=== PATIENT | male | born 1945 | race Caucasian/White ===

== ENCOUNTER 2020-12-22 08:03 | Outpatient (REF) | payer MEDICARE, SELFPAY ==
[2020-12-22 11:31] LABS: Alanine Aminotransferase 17 U/L (0-40); Albumin Level 4.2 g/dL (3.5-5.0); Alkaline Phosphatase 65 U/L (39-117); Anion Gap 15 (12-20); Aspartate Amino Transferase 14 U/L (5-37); Bilirubin Total 0.3 mg/dL (0.0-1.0); Blood Urea Nitrogen 22 mg/dL (9-16); Calcium 9.1 mg/dL (8.4-10.2); Carbon Dioxide 22 mmol/L (22-29); Chloride 108 mmol/L (96-108); Cholesterol 200 mg/dL; Estimated Glomerular Filt Rate > 60; Glucose Fasting 192 mg/dL (60-99); HDL Cholesterol 32 mg/dL; LDL Cholesterol Calculated 93 mg/dl; Potassium 4.5 mmol/L (3.3-5.1); Sodium 140 mmol/L (135-145); Total Protein 6.5 g/dL (6.5-8.0); Triglycerides 377 mg/dL
[2020-12-22 11:35] LABS: Estimated Average Glucose 177 mg/dL; Hemoglobin A1c % 7.8 %
== END 2020-12-22 08:04 | disposition home or self-care (01) ==
LOC: HO.MANLDS 08:03
PROVIDERS: PCP Internal Medicine; Visit Provider Internal Medicine
DX: I10 Essential (primary) hypertension (principal)
CPT/HCPCS: 36415; 80053; 80061; 83036

== ENCOUNTER 2021-04-21 10:52 | Outpatient (REF) | payer MEDICARE, SELFPAY ==
[2021-04-21 13:28] LABS: Estimated Average Glucose 151 mg/dL; Hemoglobin A1c % 6.9 %
[2021-04-21 13:53] LABS: Cholesterol 174 mg/dL; HDL Cholesterol 32 mg/dL; LDL Cholesterol Calculated 94 mg/dl; Triglycerides 240 mg/dL
== END 2021-04-21 10:53 | disposition home or self-care (01) ==
LOC: HO.MANLDS 10:52
PROVIDERS: PCP Internal Medicine; Visit Provider Internal Medicine
DX: E11.21 Type 2 diabetes mellitus with diabetic nephropathy (principal); I10 Essential (primary) hypertension
CPT/HCPCS: 36415; 80061; 83036

== ENCOUNTER 2021-09-01 09:02 | Outpatient (REF) | payer MEDICARE, SELFPAY ==
[2021-09-01 11:40] LABS: Estimated Average Glucose 148 mg/dL; Hemoglobin A1c % 6.8 %
== END 2021-09-01 09:03 | disposition home or self-care (01) ==
LOC: HO.MANLDS 09:02
PROVIDERS: PCP Internal Medicine; Visit Provider Internal Medicine
DX: E11.21 Type 2 diabetes mellitus with diabetic nephropathy (principal); I10 Essential (primary) hypertension
CPT/HCPCS: 36415; 83036

== ENCOUNTER 2022-01-14 07:44 | Outpatient (REF) | payer MEDICARE, SELFPAY ==
[2022-01-14 11:54] LABS: Alanine Aminotransferase 102 U/L (0-40); Albumin Level 3.6 g/dL (3.5-5.0); Alkaline Phosphatase 121 U/L (39-117); Anion Gap 14 (12-20); Aspartate Amino Transferase 52 U/L (5-37); Bilirubin Total 0.5 mg/dL (0.0-1.0); Blood Urea Nitrogen 27 mg/dL (9-16); Calcium 9.2 mg/dL (8.4-10.2); Carbon Dioxide 23 mmol/L (22-29); Chloride 102 mmol/L (96-108); Estimated Glomerular Filt Rate > 60; Glucose Random 171 mg/dL (60-115); Potassium 4.8 mmol/L (3.3-5.1); Sodium 134 mmol/L (135-145); Total Protein 6.4 g/dL (6.5-8.0)
[2022-01-14 12:11] LABS: Creatinine Urine 104.57 mg/dL; Microalbum/Creatinine Ratio Ur 401.6 ug/mg cr
== END 2022-01-14 07:45 | disposition home or self-care (01) ==
LOC: HO.MANLDS 07:44
PROVIDERS: PCP Internal Medicine; Visit Provider Internal Medicine
DX: E11.21 Type 2 diabetes mellitus with diabetic nephropathy (principal)
CPT/HCPCS: 36415; 80053; 82043

== ENCOUNTER 2022-03-04 09:34 | Outpatient (REF) | payer MEDICARE, SELFPAY ==
[2022-03-04 11:07] LABS: MANUAL DIFF FLAG NO
[2022-03-04 11:15] LABS: Basophils Absolute Auto 0.1 X10*3/uL (0.0-0.2); Basophils Percent Auto 0.7 % (0-2); Eosinophils Absolute Auto 0.2 X10*3/uL (0.0-0.4); Eosinophils Percent Auto 1.4 % (0-4); Hematocrit 41.4 % (42.0-52.0); Hemoglobin 13.9 g/dl (14.0-18.0); Imm Gran Abs Auto 0.07 X10*3/uL (0.00-0.03); Imm Gran Pct Auto 0.6 % (0.0-0.4); Lymphocytes Absolute Auto 2.6 X10*3/uL (1.2-4.9); Lymphocytes Percent Auto 22.7 % (20-40); Mean Corpuscular HGB Conc 33.6 g/dl (31.0-36.0); Mean Corpuscular Hemoglobin 30.6 pg (27.0-33.0); Mean Corpuscular Volume 91.2 fL (80.0-98.0); Mean Platelet Volume 10.7 fL (9.4-12.4); Monocytes Percent Auto 8.9 % (2-11); Neutrophils Absolute Auto 7.4 x10*3/uL (2.0-8.3); Neutrophils Percent Auto 65.7 % (45-73); Platelet Count 293 X10*3/uL (160-400); Red Blood Count 4.54 X10*6/uL (4.60-5.80); Red Cell Distribution Width 14.6 % (11.0-16.0); White Blood Count 11.3 X10*3/uL (4.8-10.8)
[2022-03-04 11:19] LABS: Appearance Urine CLEAR; Color Urine YELLOW; Glucose Urine UA NEG (NEG); Leukocyte Esterase Urine NEG (NEG); Nitrite Urine NEG (NEG); PH 5.5 (5.0-8.0); Specific Gravity - Urine >= 1.030 (1.005-1.025); UACC Culture Trigger NO; Urine Blood NEG (NEG); Urine Ketones NEG (NEG); Urine Protein 2+ MG/DL (NEG-TRACE)
[2022-03-04 11:35] LABS: Alanine Aminotransferase 17 U/L (0-40); Albumin Level 4.1 g/dL (3.5-5.0); Alkaline Phosphatase 84 U/L (39-117); Amylase 54 U/L (28-100); Anion Gap 14 (12-20); Aspartate Amino Transferase 14 U/L (5-37); Bilirubin Total < 0.2 mg/dL (0.0-1.0); Blood Urea Nitrogen 17 mg/dL (9-16); C Reactive Protein 1.23 mg/dL (< or = 0.50); Calcium 9.4 mg/dL (8.4-10.2); Carbon Dioxide 22 mmol/L (22-29); Chloride 109 mmol/L (96-108); Estimated Glomerular Filt Rate > 60; Glucose Random 144 mg/dL (60-115); Iron 62 mcg/dL (45-160); Percent Iron Saturation 21 % (15-50); Potassium 4.7 mmol/L (3.3-5.1); Sodium 140 mmol/L (135-145); Total Iron Binding Capacity 295 mcg/dL (228-428); Total Protein 6.6 g/dL (6.5-8.0); Unsaturated Iron Binding 233 ug/dL
[2022-03-04 11:45] LABS: Granular Casts Urine 0-2 /LPF
[2022-03-04 11:46] LABS: Squamous Epithelial Cell Urine TRACE /LPF; UACC CULT YES
[2022-03-04 11:47] LABS: Mucus Urine TRACE /LPF; RBC Urine 0 /HPF (0)
[2022-03-04 11:48] LABS: Vitamin B12 484 pg/mL (200-900)
[2022-03-04 11:50] LABS: Erythrocyte Sedimentation Rate 38 MM/HR (0-15)
[2022-03-04 11:54] LABS: Free T4 (Free Thyroxine) 0.88 ng/dL (0.71-1.85); Thyroid Stimulating Hormone 1.27 uIU/mL (0.32-4.0); Vitamin D 25-OH Total 23.9 ng/mL (>30)
[2022-03-06 05:02] LABS: Lyme Abs Screen <0.90 index
== END 2022-03-04 09:35 | disposition home or self-care (01) ==
LOC: HO.MANLDS 09:34
PROVIDERS: Visit Provider Physician Assistant
DX: R63.0 Anorexia (principal); R61 Generalized hyperhidrosis; R53.83 Other fatigue; M89.8X9 Other specified disorders of bone, unspecified site; M79.10 Myalgia, unspecified site; L60.3 Nail dystrophy; L65.9 Nonscarring hair loss, unspecified; Z86.2 Personal history of diseases of the blood and blood-forming organs and certain disorders involving the immune mechanism
CPT/HCPCS: 36415; 80053; 81001; 82150; 82306; 82607; 83540; 84439; 84443; 85025; 85652; 86140; 86617; 86618; 87086

== ENCOUNTER 2022-06-13 08:54 | Outpatient (REF) | payer MEDICARE, SELFPAY ==
[2022-06-13 11:12] LABS: Estimated Average Glucose 128 mg/dL; Hemoglobin A1c % 6.1 %
[2022-06-13 11:29] LABS: Alanine Aminotransferase 13 U/L (0-40); Albumin Level 4.3 g/dL (3.5-5.0); Alkaline Phosphatase 61 U/L (39-117); Anion Gap 17 (12-20); Aspartate Amino Transferase 16 U/L (5-37); Bilirubin Total 0.5 mg/dL (0.0-1.0); Blood Urea Nitrogen 24 mg/dL (9-16); Calcium 9.5 mg/dL (8.4-10.2); Carbon Dioxide 22 mmol/L (22-29); Chloride 106 mmol/L (96-108); Cholesterol 156 mg/dL; Estimated Glomerular Filt Rate > 60; Glucose Random 131 mg/dL (60-115); HDL Cholesterol 36 mg/dL; LDL Cholesterol Calculated 88 mg/dl; Potassium 4.5 mmol/L (3.3-5.1); Sodium 140 mmol/L (135-145); Total Protein 6.6 g/dL (6.5-8.0); Triglycerides 162 mg/dL
== END 2022-06-13 08:55 | disposition home or self-care (01) ==
LOC: HO.MANLDS 08:54
PROVIDERS: Visit Provider Internal Medicine
DX: E11.21 Type 2 diabetes mellitus with diabetic nephropathy (principal); I10 Essential (primary) hypertension
CPT/HCPCS: 36415; 80053; 80061; 83036

== ENCOUNTER 2022-10-07 08:39 | Outpatient (REF) | payer MEDICARE, SELFPAY ==
[2022-10-07 11:46] LABS: Estimated Average Glucose 137 mg/dL; Hemoglobin A1c % 6.4 %
[2022-10-07 12:15] LABS: Alanine Aminotransferase 19 U/L (0-40); Albumin Level 4.1 g/dL (3.5-5.0); Alkaline Phosphatase 62 U/L (39-117); Anion Gap 14 (12-20); Aspartate Amino Transferase 16 U/L (5-37); Bilirubin Total 0.4 mg/dL (0.0-1.0); Blood Urea Nitrogen 24 mg/dL (9-16); Calcium 9.4 mg/dL (8.4-10.2); Carbon Dioxide 23 mmol/L (22-29); Chloride 108 mmol/L (96-108); Cholesterol 170 mg/dL; Estimated Glomerular Filt Rate > 60; Glucose Random 146 mg/dL (60-115); HDL Cholesterol 32 mg/dL; LDL Cholesterol Calculated 91 mg/dl; Potassium 4.8 mmol/L (3.3-5.1); Sodium 140 mmol/L (135-145); Total Protein 6.4 g/dL (6.5-8.0); Triglycerides 239 mg/dL
== END 2022-10-07 08:40 | disposition home or self-care (01) ==
LOC: HO.MANLDS 08:39
PROVIDERS: Visit Provider Internal Medicine
DX: E11.21 Type 2 diabetes mellitus with diabetic nephropathy (principal); I10 Essential (primary) hypertension
CPT/HCPCS: 36415; 80053; 80061; 83036

== ENCOUNTER 2023-01-27 08:49 | Outpatient (REF) | payer MEDICARE, SELFPAY ==
[2023-01-27 12:22] LABS: Alanine Aminotransferase 20 U/L (0-40); Albumin Level 3.9 g/dL (3.5-5.0); Alkaline Phosphatase 62 U/L (39-117); Anion Gap 14 (12-20); Aspartate Amino Transferase 18 U/L (5-37); Bilirubin Total 0.4 mg/dL (0.0-1.0); Blood Urea Nitrogen 24 mg/dL (9-16); Calcium 9.3 mg/dL (8.4-10.2); Carbon Dioxide 21 mmol/L (22-29); Chloride 110 mmol/L (96-108); Cholesterol 167 mg/dL; Estimated Glomerular Filt Rate > 60; Glucose Random 148 mg/dL (60-115); HDL Cholesterol 32 mg/dL; LDL Cholesterol Calculated 87 mg/dl; Potassium 4.6 mmol/L (3.3-5.1); Sodium 140 mmol/L (135-145); Total Protein 6.2 g/dL (6.5-8.0); Triglycerides 244 mg/dL
[2023-01-27 12:32] LABS: Creatinine Urine 85.22 mg/dL
[2023-01-27 12:51] LABS: Microalbum/Creatinine Ratio Ur 1114.7 ug/mg cr
[2023-01-27 13:25] LABS: Estimated Average Glucose 128 mg/dL; Hemoglobin A1C 170.6044 umol/L; Hemoglobin A1c % 6.1 %
== END 2023-01-27 08:50 | disposition home or self-care (01) ==
LOC: HO.MANLDS 08:49
PROVIDERS: Visit Provider Internal Medicine
DX: E11.21 Type 2 diabetes mellitus with diabetic nephropathy (principal)
CPT/HCPCS: 36415; 80053; 80061; 82043; 83036

== ENCOUNTER 2023-10-02 07:32 | Outpatient (REF) | payer MEDICARE, SELFPAY ==
[2023-10-02 13:03] LABS: MANUAL DIFF FLAG NO
[2023-10-02 13:11] LABS: Basophils Absolute Auto 0.1 X10*3/uL (0.0-0.2); Basophils Percent Auto 0.9 % (0-2); Eosinophils Absolute Auto 0.2 X10*3/uL (0.0-0.4); Eosinophils Percent Auto 1.8 % (0-4); Hematocrit 44.5 % (42.0-52.0); Hemoglobin 14.9 g/dl (14.0-18.0); Imm Gran Abs Auto 0.07 X10*3/uL (0.00-0.03); Imm Gran Pct Auto 0.6 % (0.0-0.4); Lymphocytes Absolute Auto 3.2 X10*3/uL (1.2-4.9); Lymphocytes Percent Auto 27.9 % (20-40); Mean Corpuscular HGB Conc 33.5 g/dl (31.0-36.0); Mean Corpuscular Hemoglobin 30.8 pg (27.0-33.0); Mean Corpuscular Volume 91.9 fL (80.0-98.0); Mean Platelet Volume 10.6 fL (9.4-12.4); Monocytes Absolute Auto 1.4 X10*3/uL (0.1-1.2); Monocytes Percent Auto 12.5 % (2-11); Neutrophils Absolute Auto 6.4 x10*3/uL (2.0-8.3); Neutrophils Percent Auto 56.3 % (45-73); Platelet Count 243 X10*3/uL (160-400); Red Blood Count 4.84 X10*6/uL (4.60-5.80); Red Cell Distribution Width 14.2 % (11.0-16.0); White Blood Count 11.4 X10*3/uL (4.8-10.8)
[2023-10-02 13:20] LABS: Estimated Average Glucose 123 mg/dL; Hemoglobin A1c % 5.9 % (<6.0)
[2023-10-02 13:27] LABS: Creatinine Urine 87.97 mg/dL
[2023-10-02 13:44] LABS: Microalbum/Creatinine Ratio Ur 966.2 ug/mg cr (<30)
[2023-10-02 13:55] LABS: Alanine Aminotransferase 19 U/L (0-40); Albumin Level 4.1 g/dL (3.5-5.0); Alkaline Phosphatase 70 U/L (39-117); Anion Gap 14 (12-20); Aspartate Amino Transferase 17 U/L (5-37); Bilirubin Total 0.2 mg/dL (0.0-1.0); Blood Urea Nitrogen 21 mg/dL (9-16); Calcium 9.6 mg/dL (8.4-10.2); Carbon Dioxide 21 mmol/L (22-29); Chloride 111 mmol/L (96-108); Cholesterol 141 mg/dL (<200); Estimated Glomerular Filt Rate > 60; Glucose Random 125 mg/dL (60-115); HDL Cholesterol 38 mg/dL (>40); LDL Cholesterol Calculated 80 mg/dL (<100); Potassium 4.4 mmol/L (3.3-5.1); Sodium 142 mmol/L (135-145); Total Protein 6.8 g/dL (6.5-8.0); Triglycerides 117 mg/dL (<150)
[2023-10-02 14:43] LABS: Prostate Specific Antigen 3.47 ng/mL (<0.05-4.0)
== END 2023-10-02 07:33 | disposition home or self-care (01) ==
LOC: HO.MANLDS 07:32
PROVIDERS: Visit Provider Internal Medicine
DX: E11.21 Type 2 diabetes mellitus with diabetic nephropathy (principal); I10 Essential (primary) hypertension; Z12.5 Encounter for screening for malignant neoplasm of prostate
CPT/HCPCS: 36415; 80053; 80061; 82043; 82570; 83036; 84153; 85025

== ENCOUNTER 2024-11-25 09:18 | Outpatient (REF) | payer MEDICARE, SELFPAY ==
[2024-11-25 13:53] LABS: MANUAL DIFF FLAG NO
[2024-11-25 14:00] LABS: Basophils Absolute Auto 0.1 X10*3/uL (0.0-0.2); Basophils Percent Auto 0.8 % (0-2); Eosinophils Absolute Auto 0.2 X10*3/uL (0.0-0.4); Eosinophils Percent Auto 1.7 % (0-4); Hematocrit 43.2 % (42.0-52.0); Hemoglobin 14.6 g/dl (14.0-18.0); Imm Gran Abs Auto 0.08 X10*3/uL (0.00-0.03); Imm Gran Pct Auto 0.7 % (0.0-0.4); Lymphocytes Absolute Auto 3.2 X10*3/uL (1.2-4.9); Lymphocytes Percent Auto 28.2 % (20-40); Mean Corpuscular HGB Conc 33.8 g/dl (31.0-36.0); Mean Corpuscular Hemoglobin 31.3 pg (27.0-33.0); Mean Corpuscular Volume 92.5 fL (80.0-98.0); Mean Platelet Volume 10.7 fL (9.4-12.4); Monocytes Absolute Auto 1.2 X10*3/uL (0.1-1.2); Monocytes Percent Auto 10.5 % (2-11); Neutrophils Absolute Auto 6.7 x10*3/uL (2.0-8.3); Neutrophils Percent Auto 58.1 % (45-73); Platelet Count 240 X10*3/uL (160-400); Red Blood Count 4.67 X10*6/uL (4.60-5.80); Red Cell Distribution Width 13.5 % (11.0-16.0); White Blood Count 11.4 X10*3/uL (4.8-10.8)
[2024-11-25 14:09] LABS: Estimated Average Glucose 151 mg/dL; Hemoglobin A1c % 6.9 % (<6.0)
[2024-11-25 14:14] LABS: Alanine Aminotransferase 21 U/L (0-40); Alkaline Phosphatase 67 U/L (39-117); Anion Gap 12 (12-20); Aspartate Amino Transferase 29 U/L (5-37); Bilirubin Total 0.2 mg/dL (0.0-1.0); Blood Urea Nitrogen 24 mg/dL (9-16); Calcium 9.1 mg/dL (8.4-10.2); Carbon Dioxide 22 mmol/L (22-29); Chloride 111 mmol/L (96-108); Cholesterol 173 mg/dL (<200); Estimated Glomerular Filt Rate 57; Glucose Random 143 mg/dL (60-115); HDL Cholesterol 27 mg/dL (>40); Potassium 4.6 mmol/L (3.3-5.1); Sodium 140 mmol/L (135-145); Total Protein 6.7 g/dL (6.5-8.0); Triglycerides 400 mg/dL (<150)
[2024-11-25 14:33] LABS: Prostate Specific Antigen 3.92 ng/mL (<0.05-4.0)
[2024-11-25 14:45] LABS: Creatinine Urine 125.22 mg/dL
[2024-11-25 14:55] LABS: Microalbum/Creatinine Ratio Ur 887.2 ug/mg cr (<30)
== END 2024-11-25 09:19 | disposition home or self-care (01) ==
LOC: HO.MANLDS 09:18
PROVIDERS: Visit Provider Internal Medicine
DX: Z12.5 Encounter for screening for malignant neoplasm of prostate (principal); E11.21 Type 2 diabetes mellitus with diabetic nephropathy
CPT/HCPCS: 36415; 80053; 80061; 82043; 82570; 83036; 84153; 85025

== ENCOUNTER 2025-07-14 09:28 | Outpatient (REF) | payer MEDICARE, SELFPAY ==
--- OUTSIDE RECORDS SUMMARY | 2025-07-14 18:27 | XMS_ITS | Encounter Summary ---
Author Organization [facility] Address [address] [place] [address] [place] [address] Phone Care Team Providers Care Repairer Auto Clocks Name Role Phone Kwame Gonsalves Primary Care Provider [phone] Reason for Referral * MRI/CAT Scan - Closed Specialty Diagnoses / Procedures Referred By Contradha t Referred To Contact Radiology Diagnoses Diarrhea, unspecified type Procedures CT Abdomen/Pelvis CHG CT SCAN,ABDOMENT AND PELVIS,W/O CONTRAST Laxmi Posada PA Phone: tel: fax: Referral ID Status Reason Start Date Expiration Date Visits Re quested Visits Authorized [id number] Closed 01/31/2022 04/01/2022 1 1 Encounter Details Date Type Department Care Team (Latest Contact Info) Description 01/31/2022 Transcribe Orders Virtual Department [address] [place] [address] Laxmi Posada PA [address] [facility] [place] [place] [address] [place] [address] Diarrhea, unspecified type (Primary Dx) Social History Tobacco Use Types Packs/Day Years Used Date Smoking Tobacco: Every Day Smokeless Tobacco: Never Alcohol Use Standard Drinks/Week Comments Not Currently 0 (1 standard drink = 0.6 oz pur e alcohol) Sex and Gender Information Value Date Recorded Sex Assigned at Not on file Legal Sex Male 10:07 PM EDT Gender Identity Not on file Sexual Orientation Not on file documented as of this encounter Plan of Treatment Not on file documented as of this encounter Results * CT ABDOMEN/PELVIS WITHOUT CONTRAST (02/03/2022 1:59 PM EDT) Anatomical Region Laterality Modality Abdomen, Pelvis Computed Tomogra phy 02/03/2022 5:58 PM EDT Impressions 02/03/2022 6:11 PM EDT Slight of IV contrast decreases sensitivity. Within this confine: 1.No acute intra-abdominal abnormality. 2.3.6 cm infrarenal abdominal aortic aneurysm, for which Vascular Surgical referral is recommended for follow-up and management. 3.Diverticulosis. 4.Prostatomegaly. Narrative 02/03/2022 6:[address] ABDOMEN/PELVIS WITHOUT CONTRAST TECHNIQUE: Multidetector-row CT of the abdomen and pelvis was performed without intravenous contrast using tailored dose modulation techniques. Images were reconstructed in the axial, coronal, and sagittal planes. COMPARISON: None ABSENCE OF INTRAVENOUS CONTRAST DECREASES SENSITIVITY FOR DETECTION OF FOCAL LESIONS AND VASCULAR PATHOLOGY. FINDINGS: Lower Chest: Normal. No consolidation or pleural effusions. Liver: Normal. No focal lesions seen. Biliary: Normal. No biliary ductal dilatation. Spleen: Normal. No splenomegaly or focal lesions. Pancreas: Normal. No masses or ductal dilatation. Adrenal Glands: Normal. No nodules. Kidneys/Ureters: There is a 1 cm exophytic cyst arising from the lower pole of the right kidney. No solid masses, stones, or hydronephrosis. Bowel: No dilatation or wall thickening. There is diverticulosis. Peritoneum/Retroperitoneum: Normal. No masses, pneumoperitoneum, or fluid. Lymph Nodes: Normal. No lymphadenopathy. Pelvic Organs/Bladder: Normal. No mass. Prostatomegaly, mildly protruding into the base of the bladder Vessels: There is heavy atherosclerotic disease with 3.6 x 3.3 cm infrarenal abdominal aortic aneurysm Bones/Soft Tissues: No destructive osseous lesions. Scattered degenerative changes of the visualized spine are noted. Procedure Note Jayne Cortez MD - 02/03/2022 CT ABDOMEN/PELVIS WITHOUT CONTRAST TECHNIQUE: Multidetector-row CT of the abdomen and pelvis was performedwithout intravenous contrast using tailored dose modulation techniques.Images were reconstructed in the axial, coronal, and sagittal planes. COMPARISON: None ABSENCE OF INTRAVENOUS CONTRAST DECREASES SENSITIVITY FOR DETECTION OFFOCAL LESIONS AND VASCULAR PATHOLOGY. FINDINGS: Lower Chest: Normal. No consolidation or pleural effusions. Liver: Normal. No focal lesions seen. Biliary: Normal. No biliary ductal dilatation. Spleen: Normal. No splenomegaly or focal lesions. Pancreas: Normal. No masses or ductal dilatation. Adrenal Glands: Normal. No nodules. Kidneys/Ureters: There is a 1 cm exophytic cyst arising from the lowerpole of the right kidney. No solid masses, stones, or hydronephrosis. Bowel: No dilatation or wall thickening. There is diverticulosis. Peritoneum/Retroperitoneum: Normal. No masses, pneumoperitoneum, orfluid. Lymph Nodes: Normal. No lymphadenopathy. Pelvic Organs/Bladder: Normal. No mass. Prostatomegaly, mildly protruding into the base of the bladder Vessels: There is heavy atherosclerotic disease with 3.6 x 3.3 cminfrarenal abdominal aortic aneurysm Bones/Soft Tissues: No destructive osseous lesions. Scattered degenerative changes of the visualized spine are noted. IMPRESSION: Slight of IV contrast decreases sensitivity. Within this confine: 1.No acute intra-abdominal abnormality. 2.3.6 cm infrarenal abdominal aortic aneurysm, for which Vascular Surgicalreferral is recommended for follow-up and management. 3.Diverticulosis. 4.Prostatomegaly. Laxmi ALCANTARA IMG CT ABD/PELVIS Final Res ult documented in this encounter Visit Diagnoses Diagnosis Diarrhea, unspecified type- Primary Diarrhea, unspecified type documented in this encounter Care Teams Repairer Auto Clocks Relationship Specialty Start Date End Date Kwame Gonsalves DO PCP - General Internal Medicine 06/13/19 documented as of this encounter Additional Source Comments The information contained in this document represents components of the legal health record. It is not the complete legal health record.[facility]
--- OUTSIDE RECORDS SUMMARY | 2025-07-14 18:27 | XMS_ITS | Encounter Summary ---
Author Organization [facility] Address [address] [facility] [address] [place] [address] Phone Care Team Providers Care Flooring Installer Name Role Phone PamelasaidaKwame DO Primary Care Provider [phone] Reason for Referral * - Closed Specialty Diagnoses / Procedures Referred By Madelaine t Referred To Contact Radiology Diagnoses PVD (peripheral vascular disease) Procedures US Lower Extremity Arteries (ALTHEA) Physio Complete Unilat Demetrio aSlinas DO Phone: tel: fax: [email or web address] Referral ID Status Reason Start Date Expiration Date Visits Re quested Visits Authorized [id number] Closed 05/25/2022 05/25/2023 1 1 Encounter Details Date Type Department Care Team (Late st Contact Info) Description 05/25/2022 Ancillary Orders [facility] Deana [address] [facility] 3rd [place] [address] Demetrio Salinas DO [address] [facility] [address] [place] [address] [email or web address] PVD (peripheral vascular disease) Social History Tobacco Use Types Packs/Day Years [...] documented as of this encounter Results * US Lower Extremity Arteries (ALTHEA) Physio Complete Unilat (05/25/2022 12:01 PM EDT) Anatomical Region Laterality Modality Ultrasound Narrative 05/27/2022 2:08 PM EDT See scanned documents. Procedure Note Sheng Callaway MD - 05/27/2022 See scanned documents. 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 It is not the complete legal health record.[facility]
--- OUTSIDE RECORDS SUMMARY | 2025-07-14 18:27 | XMS_ITS | Encounter Summary ---
Author Organization [facility] Address [address] [place] [address] Phone Care Team Providers Care Rectifier Operator Name Role Phone Kwame Gonsalves DO Primary Care Provider [phone] Encounter Details Date Type Department Care Team (Late st Contact Info) Description 01/31/2022 Procedure Pass [facility], Ct Scan - [address] [address] Social History Tobacco Use Types Packs/Day Years [...] on file documented as of this encounter Visit Diagnoses Not on filedocumented in this encounter Care Teams Rectifier Operator Relationship Specialty Start Date End Date Kwame Gonsalves DO PCP - General Internal Medicine 06/13/19 documented as of this encounter Additional Source Comments The information contained in this document represents components of the legal health record. It is not the complete legal health record.[facility]
--- OUTSIDE RECORDS SUMMARY | 2025-07-14 18:28 | XMS_ITS | Clinical Summary ---
Author Organization [facility] Address [address] [address] Phone Care Team Providers Care Chocolate Dipper Name Role Phone Kwame Gonsalves Primary Care Provider [phone] Allergies Active Allergy Reactions Criticality Noted Date Comments Cefaclor 06/13/2019 Sulfa (Sulfonamide Antibiotics) 05/28 Triamterene-Hydrochlorothiazid 06/13 Medications acetaminophen (TYLENOL) 325 mg tablet daily. Active amLODIPine (NORVASC) 10 MG tablet amlodipine 10 mg tablet 1 Active clopidogrel (PLAVIX) 75 mg tablet Take 75 mg by mouth daily. 0 9 Active lisinopril (PRINIVIL,ZESTRIL ) 40 MG tablet lisinopril 40 mg tablet Active lovastatin (MEVACOR) 40 MG tablet lovastatin 40 mg tablet Active metoprolol tartrate (LOPRESSOR) 100 MG tablet metoprolol tartrate 100 mg tablet 1 Active cholecalciferol (VITAMIN D3) 400 unit tablet Take 400 Units by mouth daily. Active hydrALAZINE (APRESOLINE) 50 MG tabletIndications :Benign essential hypertension Take 1 tablet (50 mg total) by mouth 2 (two) times a day. 180 tablet 3 2 Active loperamide (IMODIUM) 2 mg capsule Take 2 mg by mouth daily. Active aspirin 81 mg chewable tablet Take 81 mg by mouth daily. Active Active Problems Problem Noted Date Diagnosed Date Aortic aneurysm 03/28/2022 Assessment & Plan (09/06/2022 7:38 AM EST): We will monitor this periodically it is only 3.6 cm Assessment & Plan (08/10/2022 9:34 AM EST): He has in abdominal aortic aneurysm measuring 3.3 cm. We will continue to monitor this. Assessment & Plan (03/28/2022 8:02 AM EDT): I have ordered him a lower extremity arterial ultrasound as we will follow this with ultrasound to get a baseline he also has significant SFA disease bilaterally. I will discuss this with him after the test is done Pure hypercholesterolemia 03/28/2022 Assessment & Plan (09/06/2022 7:38 AM EST): LDL should be ideally less than 55 mg/dL. Assessment & Plan (08/10/2022 9:34 AM EST): LDL should be less than 70. Continue lovastatin. The patient tells me that his lipids were checked by his PCP and have been normal. Assessment & Plan (03/28/2022 8:01 AM EDT): LDL will be checked and should be less than 70 mg/dL. Benign essential hypertension 03/28/2022 Assessment & Plan (09/06/2022 7:38 AM EST): Elevated in the office but he reports normal measurements outside Assessment & Plan (08/10/2022 9:34 AM EST): Blood pressure in the office today is elevated but better than his previous office visit. The patient tells me that he is nervous coming into our office. I suggested that he check his blood pressure at home. Assessment & Plan (03/28/2022 8:02 AM EDT): Not adequately controlled I am adding hydralazine 50 twice a day. Peripheral arterial disease 03/28/2022 Assessment & Plan (09/06/2022 7:38 AM EST): Severe disease as listed above that is symptomatic on the right I explained risk benefits and alternatives to him we are going to proceed with a right leg angiogram and intervention. Assessment & Plan (08/10/2022 9:35 AM EST): He had an ALTHEA and duplex. Please see above for results. The patient states that he had an intervention done at [facility] and a right leg intervention was attempted but stopped due to plaque. They were unable to proceed. I will have him meet with Dr. Salinas to discuss whether a repeat intervention would be worth setting up at [facility] to see if the right leg could be intervened on. Continue Plavix. Assessment & Plan (03/28/2022 8:02 AM EDT): As mentioned I have ordered him a lower extremity arterial duplex. Social History Tobacco Use Types Packs/Day Years Used Date Smoking Tobacco: Every Day Smokeless Tobacco: Never Tobacco Cessation:Ready to Q uit: Not Asked; Counseling Given: Not Answered Alcohol Use Standard Drinks/Week Comments Not Currently 0 (1 standard drink = 0.6 oz pur e alcohol) Education Answer Date Recorded Are you interested in more education? Not on mak e 12/23/2022 Are you concerned about learning? Not on file 12/23/2022 No 12/23/2022 No 12/23/2022 Digital Access Answer Date Recorded No 01/21/2023 No 01/21/2023 No 01/21/2023 Reliable internet access at home? Not on file 01/21/2023 Device with a working camera? Not on file Sex and Gender Information Value Date Recorded Sex Assigned at Not on file Legal Sex Male 10:07 PM EDT Gender Identity Not on file Sexual Orientation Not on file Last Filed Vital Signs Vital Sign Reading Time Taken Comments Blood Pressure 160/80 09/06/2022 7:24 AM EST Pulse 59 09/06/2022 7:24 AM EST Temperature 36.2 C (97.2 F) 06/13/2019 9:55 AM EDT Respiratory Rate 16 06/13/2019 9:55 AM EDT Oxygen Saturation 99% 09/06/2022 7:24 AM EST Inhaled Oxygen Concentration - - Weight 75.8 kg (167 lb) 09/06/2022 7:24 AM EST Height 172.7 cm (5' 7.99 ) 09/06/2022 7:24 AM ES T Body Mass Index 25.4 09/06/2022 7:24 AM EST Plan of Treatment Health Maintenance Due Date Last Done Comments Adult Td,Tdap Booster 1945 CREATININE LEVEL 1946 POTASSIUM LEVEL 1946 DEPRESSION SCREENING 1958 SMOKING Hx and SMOKELESS TOBACCO SCREENING 12/18/1959 HEPATITIS C SCREENING 1964 LIPID PANEL 1964 PNEUMOCOCCAL VACCINES (50+ years) (2 of 2 - PCV) 08/04/2010 08/04/2009 RSV VACCINE (1 - 1-dose 75+ series) 2021 BLOOD PRESSURE 03/06/2023 09/06/2022 INFLUENZA VACCINE (#1) 2025 , 08/22/2020, 07/23/2019, Additional history exists COVID-19 VACCINE (2024- season) 2025 07/07/2021, 11/04/2020, 10/15/2020 ZOSTER VACCINES Completed 08/24/2020, 06/25/2020 HEPATITIS A VACCINES Aged Out No long er eligible based on patient's age to complete this topic HIB VACCINES Aged Out No longer eligi ble based on patient's age to complete this topic IPV VACCINES Aged Out No longer eligi ble based on patient's age to complete this topic MENINGOCOCCAL VACCINES (ACWY) Aged Out No longer eligible based on patient's age to complete this topic MENINGOCOCCAL VACCINES (B) Aged Out N o longer eligible based on patient's age to complete this topic Medical Devices Not on file Insurance MEDICARE PART A & B MEDICARE HMO REPLACEMENT MEDICARE PART A & B MEDICARE HMO REPLACEMENT MEDICARE PART A & B MEDICARE HMO REPLACEMENT MEDICARE PART A & B MEDICARE HMO REPLACEMENT MEDICARE PART A & B Member Subscriber Plan / Payer (Ef fective 2011-Present) Name:Hussain Hinojosa Member ID:[id number] Relation to Subscriber:Self Name:Hussain Hinojosa Subscriber ID:[id number] Payer ID:[id number] Group ID:Not on file Type:Medicare Address: [employer] [address] MEDICARE HMO REPLACEMENT MEDICARE PART A & B MEDICARE HMO REPLACEMENT MEDICARE PART A & B MEDICARE HMO REPLACEMENT Member Subscriber Plan / Payer (Ef fective 2017-Present) Name:Hussain Hinojosa Relation to Subscriber:Self Name:Hussain Hinojosa Payer ID:Not on file Type:Medicare Address: [place] [id number] ([address] [address] MEDICARE PART A & B MEDICARE HMO REPLACEMENT MEDICARE PART A & B [place] MEDICARE HMO REPLACEMENT Care Teams Chocolate Dipper Relationship Specialty Start Date End Date Kwame Gonsalves DO [email or web address] PCP - General Internal Medicine 06/13/19 Additional Source Comments The information contained in this document represents components of the legal health record. It is not the complete legal health record.[facility]
--- OUTSIDE RECORDS SUMMARY | 2025-07-14 18:28 | XMS_ITS | Encounter Summary ---
Author Organization [facility] Address [address] [facility] [address] [place] [address] Phone Care Team Providers Care Transportation Security Officer Name Role Phone Kwame Gonsalves DO Primary Care Provider [phone] Encounter Details Date Type Department Care Team ([facility] st Contact Info) Description 03/26/2025 Transcribe Orders Virtual Department 30 [place] [address] Kwame Gonsalves DO [address] [facility] [place] [address] [place] [address] [email or web address] Infrarenal abdominal aortic aneurysm (AAA) without rupture (Primary Dx) Social History Tobacco Use Types [...] documented as of this encounter Visit Diagnoses Diagnosis Infrarenal abdominal aortic aneurysm (AAA) without rupture- Primary documented in this encounter Care Teams Transportation Security Officer Relationship Specialty Start Date End Date Kwame Gonsalves DO [email or web address] PCP - General Internal Medicine 06/13/19 documented as of this encounter Additional Source Comments The information contained in this document represents components of the legal health record. It is not the complete legal health record.[facility]
--- OUTSIDE RECORDS SUMMARY | 2025-07-14 18:29 | XMS_ITS | Encounter Summary ---
Author Organization [facility] Address [address] [facility] [address] [place] [address] Phone Care Team Providers Care Resistor Coater Name Role Phone Kwame Gonsalves DO Primary Care Provider [phone] Encounter Details Date Type Department Care Team (Late st Contact Info) Description 03/28/2022 Procedure Pass [facility] [place] [address] [place] [address] Social History Tobacco Use Types Packs/Day Years [...] on filedocumented in this encounter Care Teams Resistor Coater Relationship Specialty Start Date End Date Kwame Gonsalves DO PCP - General Internal Medicine 06/13/19 documented as of this encounter Additional Source Comments The information contained in this document represents components of the legal health record. It is not the complete legal health record.[facility]
--- OUTSIDE RECORDS SUMMARY | 2025-07-14 18:29 | XMS_ITS | Encounter Summary ---
Author Organization [facility] Address [address] [facility] [address] [place] [address] Phone Care Team Providers Care Energy Derivatives Trader Name Role Phone Kwame Gonsalves DO Primary Care Provider [phone] Reason for Referral * Outpatient Procedure - Closed Specialty Diagnoses / Procedures Referred By Madelaine rendon Referred To Contact Radiology Diagnoses Infrarenal abdominal aortic aneurysm, without rupture Procedures US Aorta Duplex Complete Kwame Gonsalves DO [address] [facility] [address] [place], [place] Phone: tel: fax: [email or web address]:[email or web address] Referral ID Status Reason Start Date Expiration Date Visits Re quested Visits Authorized [id number] Closed 11/25/2024 11/25/2025 1 1 Encounter Details Date Type Department Care Team (Late st Contact Info) Description 11/25/2024 Transcribe Orders Virtual Department 30 [place] [address] Kwame Gonsalves DO [address] [facility] [address] [place], [place] [email or web address] Infrarenal abdominal aortic aneurysm, without rupture (Primary Dx) Social History Tobacco [...] as of this encounter Results * US Aorta Duplex Complete (03/18/2025 11:46 AM EDT) Anatomical Region Laterality Modality Aorta Ultrasound 03/18/2025 11:4 9 AM EDT Narrative 03/18/2025 2:04 PM EDT US AORTA DUPLEX COMPLETE Referring clinician's provided indication for this examination in Epic: Outside Radiology Order; AAA TECHNIQUE: A duplex ultrasound evaluation of the abdominal aorta and iliac arteries as well as the inferior vena cava was performed using a combination of busby scale imaging, color duplex and spectral Doppler analysis. COMPARISON: CT ABDOMEN/PELVIS WITHOUT CONTRAST FINDINGS: Exam Quality: Technically adequate exam demonstrates: GENERAL: Color Doppler flow fills the lumen of the imaged aorta with no mural clot or plaques demonstrated. Spectral Doppler analysis demonstrates normal high resistive flow pattern. Aorta: Proximal: Ectatic Mid: Normal Distal: Aneurysmal IVC: Patent with normal spectral Doppler waveforms. Right Common Iliac Artery: Ectatic Left Common Iliac Artery: Ectatic Duplex: Proximal aorta: Peak systolic velocity (cm/s): 83.8 Aorta Diameter Proximal (cm): 1.9 x 2.3 Mid aorta: Peak systolic velocity (cm/s): 47.3 Aorta Diameter Mid (cm): 1.8 x 1.9 Distal aorta: Peak systolic velocity (cm/s): 49.9 Aorta Diameter Distal (cm): 3.6 x 3.5 (previously 3.5 cm). Iliac arteries: Right common Iliac artery: Peak systolic velocity (cm/s): 50.8 Diameter(cm): 1.3 x 1.2 Left common Iliac artery: Peak systolic velocity (cm/s): 86 Diameter (cm): 1.1 x 1.3 IMPRESSIONS: * Aneurysmal abdominal aorta measuring up to 3.6 cm, not significantly changed compared to January 2022. Procedure Note Terry Ramos MBBS - 03/18/2025 US AORTA DUPLEX COMPLETE Referring clinician's provided indication for this examination in Epic:Outside Radiology Order; AAA TECHNIQUE: A duplex ultrasound evaluation of the abdominal aorta and iliacarteries as well as the inferior vena cava was performed using acombination of busby scale imaging, color duplex and spectral Doppleranalysis. COMPARISON: CT ABDOMEN/PELVIS WITHOUT CONTRAST FINDINGS: Exam Quality: Technically adequate exam demonstrates: GENERAL: Color Doppler flow fills the lumen of the imaged aorta with nomural clot or plaques demonstrated. Spectral Doppler analysis demonstratesnormal high resistive flow pattern. Aorta: Proximal: Ectatic Mid: Normal Distal: Aneurysmal IVC: Patent with normal spectral Doppler waveforms. Right Common Iliac Artery: Ectatic Left Common Iliac Artery: Ectatic Duplex: Proximal aorta: Peak systolic velocity (cm/s): 83.8 Aorta Diameter Proximal (cm): 1.9 x 2.3 Mid aorta: Peak systolic velocity (cm/s): 47.3 Aorta Diameter Mid (cm): 1.8 x 1.9 Distal aorta: Peak systolic velocity (cm/s): 49.9 Aorta Diameter Distal (cm): 3.6 x 3.5 (previously 3.5 cm). Iliac arteries: Right common Iliac artery: Peak systolic velocity (cm/s): 50.8 Diameter(cm): 1.3 x 1.2 Left common Iliac artery: Peak systolic velocity (cm/s): 86 Diameter (cm): 1.1 x 1.3 IMPRESSIONS: * Aneurysmal abdominal aorta measuring up to 3.6 cm, not significantlychanged compared to January 2022. us Kwame A Bigda DO IMG US ABDOMEN Final Result documented in this encounter Visit Diagnoses Diagnosis Infrarenal abdominal aortic aneurysm, without rupture- Primary Infrarenal abdominal aortic aneurysm, without rupture documented in this encounter Care Teams Energy Derivatives Trader Relationship Specialty Start Date End Date Kwame Gonsalves DO [email or web address] PCP - General Internal Medicine 06/13/19 documented as of this encounter Additional Source Comments The information contained in this document represents components of the legal health record. It is not the complete legal health record.[facility]
--- OUTSIDE RECORDS SUMMARY | 2025-07-14 18:29 | XMS_ITS | Encounter Summary ---
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 Status post arterial stent Procedures US Aorta Duplex Complete Demetrio Salinas DO Phone: tel: fax: [email or web address] Referral ID Status Reason Start Date Expiration Date Visits Re quested Visits Authorized [id number] Closed 05/25/2022 05/25/2023 1 1 Encounter Details Date Type Department Care Team (Late st Contact Info) Description 05/25/2022 Ancillary Orders [facility] [place] [place] [address] Demetrio Salinas DO [address] [facility] [address] [place] [address] [email or web address] Abdominal aortic aneurysm (AAA) without rupture; 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 It is not the complete legal health record.[facility]
== END 2025-07-14 09:29 | disposition home or self-care (01) ==
LOC: HO.MANLDS 09:28
PROVIDERS: Visit Provider Internal Medicine
DX: E11.21 Type 2 diabetes mellitus with diabetic nephropathy (principal)
CPT/HCPCS: 36415; 83036